=== PATIENT | female | born 1985 | race Caucasian/White ===

== ENCOUNTER 2017-01-01 13:02 | Emergency (ER) | payer SELFPAY ==
--- NOTE | 2017-01-01 15:07 | UC ---
Back Pain HPI - HPI Summary HPI Summary: complaint of lower back pain that started approx 1.5 weeks ago was at work and was stocking and moving boxes at [facility] and the next day pain started constant aching pain in both sides of lower back and now the pain is in the right side of back and right hip radiates into her right buttock and right leg seen by PCP- Elo Maldonado gave baclofen without relief taking ibuprofen without any relief went to chiropractor 2 daysa go denies incontinence, denies fever, no unintentional weight loss in a year - History of Current Complaint Hx Obtained From: Patient Hx Last Menstrual Period: 09/30/16 <Cindy Tamez - Last Filed: 01/02/17 16:01> <Paty Patiño - Last Filed: 01/03/17 10:44> - History of Current Complaint Chief Complaint: UCBackPain Stated Complaint: WC BACK INJURY Time Seen by Provider: 01/01/17 14:15 - Allergies/Home Medications Allergies/Adverse Reactions: Allergies Allergy/AdvReac Type Severity Reaction Status Date / Time No Known Allergies Allergy Verified 01/01/17 13:52 Home Medications: Home Medications ALPRAZolam TAB* [Xanax TAB*] 01/01/17 [History] PMH/Surg Hx/FS Hx/Imm Hx Previously Healthy: Yes Psychological History: Anxiety - Surgical History Surgical History: Yes Surgery Procedure, Year, and Place: LEEP procedure - Family History Known Family History: Negative: Cardiac Disease, Hypertension, Diabetes - Social History Occupation: Employed Full-time Lives: With Family Alcohol Use: None Substance Use Type: None Smoking Status (MU): Current Every Day Smoker Type: Cigarettes Amount Used/How Often: 1/2 - 1 ppd Length of Time of Smoking/Using Tobacco: 12 years Have You Smoked in the Last Year: No Household Exposure Type: Cigarettes Cessation Counseling: Patient Advised to Stop <Cindy Tamez - Last Filed: 01/02/17 16:01> Review of Systems Constitutional: Negative Skin: Negative Eyes: Negative ENT: Negative Respiratory: Negative Cardiovascular: Negative Gastrointestinal: Negative Genitourinary: Negative Motor: Negative Neurovascular: Negative Musculoskeletal: Other: - lower back pain Neurological: Negative Psychological: Negative All Other Systems Reviewed And Are Negative: Yes <Cindy Tamez - Last Filed: 01/02/17 16:01> Physical Exam Triage Information Reviewed: Yes Appearance: No Pain Distress, Well-Nourished Vital Signs: Initial Vital Signs Temp 98.5 F 01/01/17 13:53 Pulse 80 01/01/17 13:53 Resp 16 01/01/17 13:53 Pulse Ox 100 01/01/17 13:53 Vital Signs Reviewed: Yes Eyes: Positive: Conjunctiva Clear ENT Exam: Normal Neck: Positive: No Lymphadenopathy Respiratory: Positive: Lungs clear, Normal breath sounds, No respiratory distress, No accessory muscle use Cardiovascular: Positive: RRR, No Murmur, Pulses Normal, Brisk Capillary Refill Abdomen Description: Positive: Nontender, Soft Bowel Sounds: Positive: Present Musculoskeletal: Positive: Other: - Spine have no noted deformities or signs of inflammation. Curvature of thoracic, and lumbar spine are within normal limits. Bony features of shoulders and hips are of equal height bilaterally. Posture is upright, and gait is smooth and normal. Spinous processes of T1-L5 palpable, midline, and non-tender;right lumbar paraspinal tenderness. Flexion, extension, and rotation of the remaining spinal column limited d/t pain. Neurological: Positive: Alert, Other: - patellar reflexes intact SLR negative Psychological Exam: Normal Skin Exam: Normal <Cindy Tamez - Last Filed: 01/02/17 16:01> Vital Signs: Initial Vital Signs Temp 98.5 F 01/01/17 13:53 Pulse 80 01/01/17 13:53 Resp 16 01/01/17 13:53 Pulse Ox 100 01/01/17 13:53 <Paty Patiño - Last Filed: 01/03/17 10:44> Back Pain Course/Dx - Course Course Of Treatment: exam completed. no red flags to warrant imaging. will treta with NSAIDS, muscle relaxer will refer to PT for further evaluation and treatment - Differential Dx/Diagnosis Differential Diagnosis/HQI/PQRI: Herniated Disc, Strain, Sprain Provider Diagnoses: lower back pain with radiculopathy <Cindy Tamez - Last Filed: 01/02/17 16:01> Discharge <Cindy Tamez - Last Filed: 01/02/17 16:01> <Paty Patiño - Last Filed: 01/03/17 10:44> - Discharge Plan Condition: Stable Disposition: HOME Prescriptions: Ibuprofen TAB* [Motrin TAB* 800 MG] 800 mg PO Q6H #30 tab Metaxalone TAB* [Skelaxin TAB*] 800 mg PO TID #30 tab Patient Education Materials: Lumbar Radiculopathy (ED) Referrals: Vic Maldonado NP [Primary Care Provider] - Additional Instructions: Start skelaxin as directed. Do not drink alcohol or drive while taking skelaxin Please call physical therapy for further evaluation and treatment. Take ibuprofen for fever or pain. Increase fluids and rest. Please review your discharge instructions. If your symptoms do not improve please call your primary care provider or return to urgent care. Attestation Statement User Type: Provider - I was available for consult. This patient was seen by the [facility]ER[facility]. The patient was not presented to, seen by, or examined by me. -Eusebio <Paty Patiño - Last Filed: 01/03/17 10:44>
[2017-01-01] MEDS ORDERED: Ketorolac INJ* 60 MG/2 ML VIAL IM ONE (15:12)
== END 2017-01-01 15:45 | disposition home or self-care (01) ==
LOC: UCEAST 13:02
DX: M54.5 Low back pain (principal); M54.16 Radiculopathy, lumbar region
CPT/HCPCS: 96372; 99212; G0463; J1885